=== PATIENT | female | born 1965 | race Caucasian/White ===

== ENCOUNTER → 2016-10-21 | Outpatient (REF) | payer MEDICAID, OTHER, SELFPAY ==
[~2016-10-21] MED LIST: COUM2.5T17 PO; IBUP-1114 PO; PERC5TAB12 PO
[2016-10-21 19:02] LABS: MEAN CORPUSCULAR HEMOGLOBIN 34.2 pg (27.0-33.0); MEAN CORPUSCULAR HGB CONC 34.5 g/dl (32.0-36.5); MEAN CORPUSCULAR VOLUME 99.2 fl (80.0-96.0); PLATELET COUNT, AUTOMATED 220 k/mm3 (150-450); RED CELL DISTRIBUTION WIDTH 12.8 % (11.5-14.5)
[2016-10-21 19:39] LABS: ERYTHROCYTE SEDIMENTATION RATE 7 mm/hr (0-30)
[2016-10-25 00:06] LABS: Lyme Disease IgG/IgM Antibodie <0.91 ISR (0.00-0.90); Lyme Disease IgM Ab Quantitati <0.80 index (0.00-0.79)
== END ==
LOC: M LABDRAW1 17:57
PROVIDERS: ATTEND Orthopaedic Surgery
DX: M16.11 Unilateral primary osteoarthritis, right hip (principal)

== ENCOUNTER → 2016-12-12 | Outpatient (CLI) | payer OTHER ==
[2016-12-12 11:09] LABS: MEAN CORPUSCULAR HEMOGLOBIN 33.1 pg (27.0-33.0); MEAN CORPUSCULAR HGB CONC 34.5 g/dl (32.0-36.5); MEAN CORPUSCULAR VOLUME 95.9 fl (80.0-96.0)
[2016-12-12 11:23] LABS: INR 0.88
[2016-12-12 11:28] LABS: ALBUMIN/GLOBULIN RATIO 1.14 (1.00-1.93); ALKALINE PHOSPHATASE 105 U/L (45-117); ALT/SGPT 27 U/L (12-78); ANION GAP 5 MEQ/L (8-16); AST/SGOT 16 U/L (15-37); BLOOD UREA NITROGEN 17 MG/DL (7-18); CALCIUM LEVEL 9.5 MG/DL (8.5-10.1); CARBON DIOXIDE LEVEL 29 MEQ/L (21-32); CHLORIDE LEVEL 104 MEQ/L (98-107); CREATININE FOR GFR 0.73 MG/DL (0.55-1.02); GLOMERULAR FILTRATION RATE > 60.0 (>51); GLUCOSE, FASTING 100 MG/DL (70-105); POTASSIUM SERUM 4.1 MEQ/L (3.5-5.1); SODIUM LEVEL 138 MEQ/L (136-145); TOTAL PROTEIN 7.5 GM/DL (6.4-8.2)
--- NOTE | 2016-12-12 22:45 | ECGEPIP ---
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 Electronically Signed On 12-12-2016 22:45:38 EDT by Raman Myers
--- NOTE | 2016-12-13 02:30 | REP ---
Clinical: Preoperative assessment . Comparison: None . Technique: PA and lateral. Findings: The mediastinum and cardiac silhouette are normal. Airway is patent and midline. The lung lockett are clear and without acute consolidation, effusion, or pneumothorax. The skeletal structures are intact and normal. Impression: 1. No acute cardiopulmonary process. Signed by Manjit Kinney MD 12/13/2016 02:22 A
== END ==
LOC: M ADMPAT 09:25
PROVIDERS: ATTEND Orthopaedic Surgery
DX: Z01.818 Encounter for other preprocedural examination (principal); E87.6 Hypokalemia; E83.52 Hypercalcemia; E11.9 Type 2 diabetes mellitus without complications; E78.5 Hyperlipidemia, unspecified; M17.11 Unilateral primary osteoarthritis, right knee

== ENCOUNTER 2016-12-26 06:16 | Inpatient (IN) | payer OTHER ==
[2016-12-12 09:45] VITALS: BP 122/82
--- NOTE | 2016-12-22 16:59 | HPE ---
DATE OF ADMISSION: 12/26/2016 Mrs. Sheriff is a 51-year-old female with continuing symptomatic right hip pain. She has consented for right total hip arthroplasty per Dr. Clark Gonzalez. Medical optimization with Nurse Practitioner Cierra of [facility] [place]. X-rays are consistent with advanced osteoarthritis. ALLERGIES: NONE KNOWN TO DRUGS: MEDICAL PROBLEM LIST: Includes symptomatic right hip osteoarthritis. She is a smoker. FAMILY HISTORY: Positive for arthritis, diabetes, hypertension, and cancer. CURRENT MEDICATIONS: - Tylenol with Codeine #3, 300-300 mg - Mobic 7.5 mg - gabapentin 100 mg SOCIAL HISTORY: She is a current smoker. Occasionally consumes alcohol. Denies illicit drugs. REVIEW OF SYSTEMS: Denies chest pain, shortness breath, dyspnea on exertion, fever, chills, malaise, upper respiratory or urinary tract symptoms. VITAL SIGNS: Blood pressure (BP) 130/70. Pulse 68. Respirations 20. Height 64.75. Weight 189. Temperature 97.2. This is a pleasant overweight white female. She is in no acute distress. She is alert and times three. Mood and affect are appropriate. She is ambulating slow steady favoring of the left lower extremity. Gross antalgia is noted about the right. Right hip range of motion is limited and irritable through internal and external range of motion. Bowel sounds times four, soft, nontender. Chest rises symmetrically. Regular rate and rhythm. Lungs clear to auscultation. Neck supple. Negative jugular venous distention (JVD) or bruits. Normocephalic. Medical clearance visualized. CHEST X-RAY: No acute cardiopulmonary process per Dr. Kinney. EKG: Per Dr. Myers shows sinus rhythm, right ventricular conduction delay. LABORATORY STUDIES: PTT time was 12.0. Anion gap 5. Mean corpuscular hemoglobin 33.1. Nasal sinus and urine cultures within normal limits. IMPRESSION: 1. Symptomatic right hip osteoarthritis. 2. Patient consented for right total hip arthroplasty per Dr. Clark Gonzalez. 3. Medical optimization per Nurse Practitioner Cierra. 4. On-call to operating room (OR) 2 grams intravenous (IV) Kefzol in OR. 5. Sequential compressive device (SCD) and thromboembolism deterrents (TEDs) in OR. Consent was reviewed and signed on 12/21/2016. [facility]
[~2016-12-26] VITALS: Ht 167.6 cm; Wt 88.0 kg
[2016-12-26] VITALS (8 sets, daily range): BP systolic 91–123; BP diastolic 46–72; O2SAT 100
[~2016-12-26 06:16] MED LIST changes: -COUM2.5T17 PO; +EPINEPHrine INJ 1 MG/ML 1ML AMP As Ordered ONE; -PERC5TAB12 PO; +TRANEXAMIC ACID 100 MG/ML 10ML VIAL As Ordered ONE; +ceFAZolin 1GM INJ (J0690) As Ordered ONE
[2016-12-26] MEDS ORDERED: LR 1,000 ML IV SCH ×2 (06:30→10:30)
[2016-12-26] MEDS ORDERED: LIDOCAINE 2% INJ 100 MG/5 ML SDV (FOR ANES.) As Ordered ONE (07:11)
[2016-12-26] MEDS ORDERED: PROPOFOL 200 MG/20 ML VIAL As Ordered ONE (07:11)
[2016-12-26] MEDS ORDERED: fentaNYL 100 MCG/2 ML INJECTION (J3010) As Ordered ONE (07:12)
[2016-12-26] MEDS ORDERED: MIDAZOLAM INJ 2 MG/2 ML VIAL (J2250) As Ordered ONE (07:12)
--- NOTE | 2016-12-26 08:50 | IPN ---
DATE: 12/26/2016 Patient seen and examined. She wished to go ahead with a right total hip arthroplasty. She is aware of the nature of the procedure and the risk of bleeding, infection, damage to nerves, vessels, persistent pain, wear loosening, dislocation, leg length inequality, blood clots, medical problems, among others. She actually seems have a little bit of a leg length inequality with her operative side right being a little longer than her left, and I explained that it is not likely we will shorten that leg and it is possible she could be a little longer on that side. She wished to proceed.
[2016-12-26] MEDS ORDERED: ePHEDrine SULFATE 25 MG/5 ML(5MG/ML) SYRINGE As Ordered ONE (09:21)
[2016-12-26] MEDS ORDERED: PHENYLephrine HCL 500 MCG/5 ML (100MCG/ML) SYRINGE (J2370) As Ordered ONE (09:37)
[2016-12-26] MEDS ORDERED: MORPHINE 1MG/ML IN 0.9% NACL 100ML IV BAG As Ordered ONE (09:57)
[2016-12-26] MEDS ORDERED: ONDANSETRON 4MG/2ML VIAL (J2405) As Ordered ONE (10:20)
[2016-12-26] MEDS: ONDANSETRON 4MG/2ML VIAL (J2405) IV PRN (10:24)
[2016-12-26] MEDS: LR 1,000 ML IV SCH ×2 (10:30→23:00)
[2016-12-26] MEDS ORDERED: ONDANSETRON 4MG/2ML VIAL (J2405) IV PRN ×2 (10:30)
[2016-12-26] MEDS ORDERED: MORPHINE 1MG/ML IN 0.9% NACL 100ML IV BAG IV PRN (10:30)
[2016-12-26] MEDS ORDERED: PERCOCET 5MG/325MG TAB PO PRN (10:30)
[2016-12-26] MEDS ORDERED: NALBUPHINE HCL 10 MG/ML AMP (J2300) IV PRN (10:30)
[2016-12-26] MEDS ORDERED: EPIDURAL/PCA KEYS XX PRN (10:30)
[2016-12-26] MEDS ORDERED: FLEET ENEMA PR PRN (10:30)
[2016-12-26] MEDS ORDERED: fentaNYL 100 MCG/2 ML INJECTION (J3010) IV PRN (10:30)
[2016-12-26] MEDS ORDERED: ACETAMINOPHEN TAB 650MG DOSE (2X325MG) PO PRN (10:30)
[2016-12-26] MEDS ORDERED: diphenhydrAMINE INJ 50MG/ML VIAL (J1200) IV PRN (10:30)
[2016-12-26] MEDS ORDERED: METOCLOPRAMIDE INJ 10MG/2ML VIAL (J2765) IV PRN (10:30)
[2016-12-26] MEDS ORDERED: NALOXONE INJ 0.4 MG/1 ML VIAL (J2310) IV PRN (10:30)
[2016-12-26] MEDS ORDERED: MEPERIDINE INJ 25 MG/ML VIAL (J2175) IV PRN (10:30)
[2016-12-26] MEDS: PREGABALIN 75 MG CAP(LYRICA) PO SCH ×2 (13:19→20:52)
[2016-12-26] MEDS ORDERED: NICOTINE 14 MG/24 HR TRANSDERMAL TD PRN (15:30)
[2016-12-26] MEDS ORDERED: WARFARIN SOD 5 MG TAB PO ONE (17:00)
[2016-12-27 02:00] VITALS: BP 115/62
[2016-12-27 06:00] VITALS: BP 121/70
[2016-12-27] MEDS: ONDANSETRON 4MG/2ML VIAL (J2405) IV PRN (06:11)
[2016-12-27 06:41] LABS: MEAN CORPUSCULAR HEMOGLOBIN 33.8 pg (27.0-33.0); MEAN CORPUSCULAR HGB CONC 34.3 g/dl (32.0-36.5); MEAN CORPUSCULAR VOLUME 98.4 fl (80.0-96.0); PLATELET COUNT, AUTOMATED 189 10^3/uL (150-450); RED CELL DISTRIBUTION WIDTH 13.2 % (11.5-14.5); WHITE BLOOD COUNT 8.6 10^3/uL (4.0-10.0)
[2016-12-27 06:58] LABS: INR 1.01
[2016-12-27 06:58] LABS: ANION GAP 5 MEQ/L (8-16); BLOOD UREA NITROGEN 10 MG/DL (7-18); CALCIUM LEVEL 8.7 MG/DL (8.5-10.1); CARBON DIOXIDE LEVEL 30 MEQ/L (21-32); CHLORIDE LEVEL 103 MEQ/L (98-107); CREATININE FOR GFR 0.63 MG/DL (0.55-1.02); GLOMERULAR FILTRATION RATE > 60.0 (>51); GLUCOSE, FASTING 129 MG/DL (70-105); POTASSIUM SERUM 4.6 MEQ/L (3.5-5.1); SODIUM LEVEL 138 MEQ/L (136-145)
[2016-12-27] MEDS ORDERED: ONDANSETRON 4 MG TAB (S0181) PO PRN (07:00)
[2016-12-27] MEDS ORDERED: PERCOCET 5MG/325MG TAB PO PRN (07:00)
--- NOTE | 2016-12-27 09:33 | REP ---
RIGHT HIP, TWO VIEWS: Two views of the right hip are performed. There is a total hip prosthesis in good position. Structures are well aligned and intact. Metallic skin angeline are seen laterally. Signed by Felipe Esteban MD 12/27/2016 01:07 P
[2016-12-27] MEDS: MIRALAX *UNIT DOSE* 17GM PACKET PO SCH (09:43)
[2016-12-27] MEDS: PREGABALIN 75 MG CAP(LYRICA) PO SCH ×2 (09:43→20:56)
[2016-12-27] MEDS: MOM 30ML SUSPENSION UDC PO SCH (09:44)
[2016-12-27] MEDS: SENOKOT S TAB PO SCH ×2 (09:44→20:56)
[2016-12-27] MEDS: PERCOCET 5MG/325MG TAB PO PRN ×3 (09:44→22:36)
[2016-12-27 10:00] VITALS: BP 123/68
--- NOTE | 2016-12-27 12:32 | IPN ---
DATE: 12/26/2016 Ms. Sheriff is feeling okay. She is not complaining of any pain, chest pain, shortness of breath. She was seen in the postop area. Temperature 97.1, pulse 52, respiratory rate 16, blood pressure 142/65, 100% on room air. Awake, appropriately interactive, pleasantly conversant. Good historian. A little sleepy. Mucous membranes are moist. Neck supple. Breathing is symmetrical, rested. No accessory muscle use. Speaking in complete sentences. Heart is in a regular rate and rhythm, not bradycardic on my exam. Abdomen soft, hypoactive bowel sounds. White cell count on the 16 was 7, hemoglobin 15.3, on same day creatinine 0.7. ASSESSMENT: This is a 51-year-old postop hip replacement day #0. PLAN: 1. Orthopedic. Patient is postop from a right hip replacement. Pain management, deep vein thrombosis (DVT) prophylaxis, activity, GI regimen and discharge per orthopedics. 2. Patient has right bundle branch block, chronic. 3. Patient is a smoker. Will make nicotine patch available to her. We did not discuss smoking cessation while she was in the recovery room.
[2016-12-27 14:00] VITALS: BP 147/79
--- NOTE | 2016-12-27 15:15 | RO ---
DATE OF PROCEDURE: 12/26/2016 PREOPERATIVE DIAGNOSIS: Right hip osteoarthritis. POSTOPERATIVE DIAGNOSIS: Right hip osteoarthritis. OPERATIVE PROCEDURE: Right total hip arthroplasty using a Milam size 52 cup, 36+ 5 ball and a size 5 Milam stem. I used a ceramic head. SURGEON: Clark Gonzalez MD WATER TREATMENT TECHNICIAN: Corbin Carpio ANESTHESIA: Spinal ESTIMATED BLOOD LOSS: 100 mL COMPLICATIONS: None. INDICATION: 51-year woman who has had persistent pain in her right hip with severe arthritis noted and she wanted to go on with hip replacement. She understood the nature of this, the risks of bleeding, infection, damage to nerves and vessels, persistent pain, wear, loosening, dislocation, leg length inequality, blood clots, medical problems, among others. DESCRIPTION OF PROCEDURE: The patient was taken to operating room and placed in the left lateral decubitus position. All areas were padded appropriately. The right hip was prepped and draped in the usual sterile fashion. Time-out was performed and a longitudinal incision was made over the lateral aspect of the hip, slightly longer than usual just due to her obesity. I then sharply dissected down through the subcutaneous tissue until the fascia was encountered. I then incised the fascia longitudinally and exposed the abductor. The anterior 40% the abductor was divided off of the femur as we gradually externally rotated the leg and exposed the neck. I divided the labrum, which did seem to have some complex tearing in it. I then dislocated the hip with the curriculum assistant principal's help and I used a canal initiating reamer on the femoral side followed by the canal finding reamer and the lateralizing reamer and then sequentially reamed up to a size 5 reamer, which had good bony purchase and good fit. Then used the saw to take head off which had severe arthritis, removing it at about a half a fingerbreadth or so up from the lesser trochanter. We then directed our attention to the acetabulum and anterior and posterior retractor were placed. I removed soft tissue from around the acetabulum, noted that I was able to deepen the acetabulum. She has somewhat of a dysplastic cup. I then was able to gradually ream up to a size 51 which had good concentric reaming and good bleeding bone and irrigated. I was able to medialized this as I did ream it. Then placed the 52 cup in the appropriate amount of anteversion horizontal tilt and then impacted in place and excellent position was noted. We then inserted the actual liner, a 52 x 36. Selected the 36 for added stability. This was locked in place. Again irrigated. I then broached the femoral side and was able to get up to a size 5, which fit very nicely. Used a trial 1.5 and a trial 5 x 36 head and reduced this with the curriculum assistant principal's help, put the hip through a range of motion. There was no impingement. The 5 felt a little better in terms of soft tissue tension and there was minimal shuck in full extension. She had excellent stability in flexion internal rotation, extension external rotation. The canal was then irrigated after the components were removed. I then inserted the actual size 5 Milam standard, impacted this in place. Excellent fit was noted. Again irrigated, dried the taper, placed the ceramic 36 +5 ball, impacted this on so that there was a solid cold weld. Then reduced the hip and put the hip through a range of motion again very pleased with the stability and position of the components. Irrigated copiously, placed the TXA solution, closed the deep layer with #1 Vicryl suture and the abductor with #1 Vicryl suture, which was an excellent closure. Then irrigated, closed the fascia with some interrupted #1 Vicryl sutures and a running Stratafix in each direction with the curriculum assistant principal's help. This was a watertight closure. We irrigated, closed the subcu with #2-0 Vicryl and the skin with angeline. She was taken to recovery room in stable condition. There were no known complications. The curriculum assistant principal was instrumental in holding retractors, assisting in reducing and dislocating the hip.
[2016-12-27] MEDS ORDERED: WARFARIN SOD 5 MG TAB PO ONE ×2 (17:00)
[2016-12-27 22:00] VITALS: BP 111/56
[2016-12-28 05:00] VITALS: O2SAT 96
[2016-12-28 06:00] VITALS: BP 147/57
[2016-12-28 06:32] LABS: MEAN CORPUSCULAR HEMOGLOBIN 33.7 pg (27.0-33.0); MEAN CORPUSCULAR HGB CONC 34.9 g/dl (32.0-36.5); MEAN CORPUSCULAR VOLUME 96.5 fl (80.0-96.0); PLATELET COUNT, AUTOMATED 166 10^3/uL (150-450); WHITE BLOOD COUNT 9.5 10^3/uL (4.0-10.0)
[2016-12-28 06:42] LABS: INR 1.12
[2016-12-28 07:00] LABS: ANION GAP 6 MEQ/L (8-16); BLOOD UREA NITROGEN 7 MG/DL (7-18); CALCIUM LEVEL 8.6 MG/DL (8.5-10.1); CARBON DIOXIDE LEVEL 30 MEQ/L (21-32); CHLORIDE LEVEL 103 MEQ/L (98-107); CREATININE FOR GFR 0.58 MG/DL (0.55-1.02); GLOMERULAR FILTRATION RATE > 60.0 (>51); GLUCOSE, FASTING 111 MG/DL (70-105); POTASSIUM SERUM 4.1 MEQ/L (3.5-5.1); SODIUM LEVEL 139 MEQ/L (136-145)
[2016-12-28] MEDS ORDERED: COUM2.5T17 PO (08:45)
[2016-12-28] MEDS ORDERED: PERC5TAB12 PO (08:45)
[2016-12-28] MEDS: SENOKOT S TAB PO SCH (09:00)
[2016-12-28] MEDS: MOM 30ML SUSPENSION UDC PO SCH (09:00)
[2016-12-28] MEDS ORDERED: ENOXAPARIN 40 MG/0.4 ML SYRINGE (J1650) SC ONE (09:00)
[2016-12-28] MEDS: MIRALAX *UNIT DOSE* 17GM PACKET PO SCH (09:01)
[2016-12-28] MEDS: PREGABALIN 75 MG CAP(LYRICA) PO SCH (09:01)
[2016-12-28] MEDS: PERCOCET 5MG/325MG TAB PO PRN (09:01)
--- NOTE | 2016-12-28 09:44 | IPN ---
DATE: 12/27/2016 Ms. Sheriff is still feeling well today. She has no complaints of pain, chest pain, shortness of breath. She is tolerating her diet. Temperature is 99.2, pulse 88, respiratory rate 15, blood pressure 121/70, 97% on room air. Intake and output notable for a positive fluid balance of 1860. No bowel movements noted. She is awake, appropriately interactive, pleasantly conversant. Mucous membranes are moist. Neck supple. Breathing is symmetrical. Heart is in a regular rate and rhythm. Abdomen soft, doughy, nontender. White cell count 8.6, hemoglobin 12.7, creatinine 0.6, INR 1.01. ASSESSMENT: This is a 51-year-old postop hip replacement day #1. PLAN: 1. Orthopedic. Patient is postop from a right hip replacement and is doing well. Pain management, deep vein thrombosis (DVT) prophylaxis, activity, GI regimen and discharge per orthopedics. I have discussed this case with the orthopedic team in person. 2. Patient has right bundle branch block noted as an outpatient, which is chronic. 3. Patient is a smoker. She has a nicotine patch available to her.
--- NOTE | 2016-12-31 15:22 | DSES ---
DATE OF ADMISSION: 12/26/2016 DATE OF DISCHARGE: 12/28/2016 CHIEF COMPLAINT: Osteoarthritis, right hip. OTHER DIAGNOSIS: Right bundle branch block. DISCHARGE DIAGNOSIS: Osteoarthritis right hip, status post right total hip arthroplasty. OPERATION PERFORMED: Right total hip arthroplasty. HISTORY: This a pleasant 51-year-old female patient with progressively worsening right hip pain and stiffness. She elected for surgery for her continued symptoms. She was admitted for elective hip replacement on the right side. HOSPITAL COURSE: The patient was admitted on the day of surgery and underwent a right total hip arthroplasty, which was uneventful. She did well in the postoperative period, and her hospital course was without complication. She was up with physical therapy per their protocol, and her pain was controlled. On day of discharge she was doing well, weightbearing as tolerated on the right lower extremity. She will use adjusted-dose Coumadin and thromboembolic deterrent (PRIETO) stockings for 30 days postoperative for deep vein thrombosis (DVT) prophylaxis. She will resume her preoperative medications and diet. She was given instructions to include, but not limited to, wound monitoring activity limitations. She will followup in our office in 10-14 days for surgical followup. She will use oral pain medications for pain control. Please refer to the medical record for further details.
== END 2016-12-28 14:15 | disposition home health service (06) | DRG 301 ==
LOC: M OR 06:16 → M MS5PR 11:25
PROVIDERS: ADMIT Orthopaedic Surgery; ATTEND Orthopaedic Surgery
PROC: 0SR904A Replacement of Right Hip Joint with Ceramic on Polyethylene Synthetic Substitute, Uncemented, Open Approach (ICD-10-PCS; principal; 2016-12-26 08:32)
DX: M16.11 Unilateral primary osteoarthritis, right hip (principal); F17.200 Nicotine dependence, unspecified, uncomplicated

== ENCOUNTER → 2017-01-05 | Outpatient (REF) | payer OTHER ==
[~2017-01-05] MED LIST changes: +COUM2.5T17 PO; -EPINEPHrine INJ 1 MG/ML 1ML AMP As Ordered ONE; +PERC5TAB12 PO; -TRANEXAMIC ACID 100 MG/ML 10ML VIAL As Ordered ONE; -ceFAZolin 1GM INJ (J0690) As Ordered ONE
[2017-01-05 14:30] LABS: INR 1.54
== END ==
LOC: M SHH 14:07
PROVIDERS: ATTEND Nurse Practitioner Family
DX: Z51.81 Encounter for therapeutic drug level monitoring (principal); Z79.01 Long term (current) use of anticoagulants

== ENCOUNTER → 2017-01-09 | Outpatient (REF) | payer OTHER ==
[2017-01-09 11:04] LABS: INR 1.62
== END ==
LOC: M LABDRAW1 08:51
PROVIDERS: ATTEND Nurse Practitioner Family
DX: Z79.01 Long term (current) use of anticoagulants (principal)

== ENCOUNTER → 2017-01-12 | Outpatient (REF) | payer OTHER ==
[2017-01-12 14:33] LABS: INR 1.44
== END ==
LOC: M SHH 14:03
PROVIDERS: ATTEND Nurse Practitioner Family
DX: Z51.81 Encounter for therapeutic drug level monitoring (principal); Z79.01 Long term (current) use of anticoagulants

== ENCOUNTER → 2017-01-16 | Outpatient (REF) | payer OTHER ==
[2017-01-16 14:22] LABS: INR 1.69
== END ==
LOC: M SHH 13:50
PROVIDERS: ATTEND Nurse Practitioner Family
DX: Z79.01 Long term (current) use of anticoagulants (principal)

== ENCOUNTER → 2017-01-18 | Outpatient (REF) | payer OTHER ==
[2017-01-18 12:12] LABS: INR 1.59
== END ==
LOC: M SHH 11:40
PROVIDERS: ATTEND Nurse Practitioner Family
DX: Z79.01 Long term (current) use of anticoagulants (principal)

== ENCOUNTER → 2017-01-23 | Outpatient (REF) | payer OTHER ==
[2017-01-23 15:06] LABS: INR 1.61
== END ==
LOC: M SHH 14:30
PROVIDERS: ATTEND Nurse Practitioner Family
DX: Z79.01 Long term (current) use of anticoagulants (principal)